=== PATIENT | male | born 1965 | race African-American/Black ===

== ENCOUNTER 2023-02-01 15:43 | Inpatient (IN) | payer OTHER ==
[2023-02-01] MEDS ORDERED: IBUPROFEN 400 MG TABLET (FP) PO PRN (18:51)
[2023-02-01] MEDS ORDERED: POLYETHYLENE GLYCOL (HEALTHYLAX) 3350 17 GM PACKET PO PRN (18:51)
[2023-02-01] MEDS ORDERED: METHOCARBAMOL 500 MG TABLET PO PRN (18:51)
[2023-02-01] MEDS ORDERED: IBUPROFEN 600 MG TABLET (FP) PO PRN (18:51)
[2023-02-01] MEDS ORDERED: NALOXONE HCL (KLOXXADO) 8 MG SPRAY NS PRN (18:51)
[2023-02-01] MEDS ORDERED: MAG HYDROX/AL HYDROX/SIMETH 30 ML UNIT-DOSE CUP PO PRN (18:51)
[2023-02-01] MEDS ORDERED: ONDANSETRON *ODT* 4 MG TABLET SL PRN (18:51)
[2023-02-01] MEDS ORDERED: MAGNESIUM HYDROX 2400MG/30ML ORAL SUSPENSION 30 ML CUP PO PRN (18:51)
[2023-02-01] MEDS ORDERED: LOPERAMIDE HCL 2 MG CAPSULE PO PRN (18:51)
[2023-02-01] MEDS ORDERED: BISMUTH SUBSALICYLATE 524 MG/30 ML PO PRN (18:51)
[2023-02-01] MEDS ORDERED: NICOTINE 10 MG CARTRIDGE (INHALER) IH PRN (18:51)
[2023-02-01] MEDS ORDERED: BENZOCAINE/MENTHOL (CHLORASEPTIC ) LOZENGE MM PRN (18:51)
[2023-02-01] MEDS ORDERED: DICYCLOMINE HCL 10 MG CAPSULE PO PRN (18:51)
[2023-02-01] MEDS ORDERED: ACETAMINOPHEN 325 MG TABLET (FP) PO PRN (18:51)
[2023-02-01] MEDS: MELATONIN 5 MG TABLETS PO SCH (22:27)
[2023-02-01] MEDS: THIAMINE HCL 100 MG TABLET (FP) PO SCH (22:27)
[2023-02-01] MEDS: ACETAMINOPHEN 325 MG TABLET (FP) PO PRN (22:28)
[2023-02-02] MEDS ORDERED: cloNIDine HCL 0.1 MG TABLET PO ONE (06:47)
[2023-02-02] MEDS: hydrOXYzine PAMOATE 25 MG CAPSULE (FP) PO PRN (07:02)
[2023-02-02 10:09] LABS: HEMATOCRIT 36.7 % (35.4-49); HEMOGLOBIN 11.8 GM/dL (11.7-16.9); MCH 30.3 pg (25.7-33.7); MCHC 32.1 g/dl (32.0-35.9); MEAN CELL VOLUME 94.4 fl (80-96); MEAN PLT VOLUME 8.7 fl (7.5-11.1); PLATELET COUNT 223 10^3/uL (134-434); RBC 3.88 M/mm3 (4.00-5.60); WHITE BLOOD COUNT 7.4 K/mm3 (4.0-10.0)
[2023-02-02] MEDS: ACETAMINOPHEN 325 MG TABLET (FP) PO PRN (10:32)
[2023-02-02] MEDS: PRENATAL VITAMINS W/ FOLIC ACID TABLET (FP) PO SCH (10:34)
[2023-02-02 10:35] LABS: CALCIUM 8.2 mg/dL (8.5-10.1)
[2023-02-02 10:36] LABS: ALBUMIN 3.2 g/dl (3.4-5.0)
[2023-02-02 10:39] LABS: CREATININE 1.4 mg/dL (0.55-1.3); TOT PROT 6.6 g/dl (6.4-8.2)
[2023-02-02 10:41] LABS: BILIRUBIN,TOTAL 0.6 mg/dL (0.2-1)
[2023-02-02] MEDS: MELATONIN 5 MG TABLETS PO SCH (22:30)
[2023-02-02] MEDS: THIAMINE HCL 100 MG TABLET (FP) PO SCH (22:30)
[2023-02-03] MEDS: PRENATAL VITAMINS W/ FOLIC ACID TABLET (FP) PO SCH (10:33)
[2023-02-03] MEDS ORDERED: amLODIPine BESYLATE 5 MG TABLET (FP) PO SCH (18:00)
[2023-02-03] MEDS: amLODIPine BESYLATE 10 MG TABLET (FP) PO SCH (18:06)
[2023-02-03] MEDS: ACETAMINOPHEN 325 MG TABLET (FP) PO PRN (18:06)
[2023-02-03] MEDS: THIAMINE HCL 100 MG TABLET (FP) PO SCH (21:56)
[2023-02-03] MEDS: CALCIUM CARBONATE 650 MG TABLET PO SCH (21:56)
[2023-02-03] MEDS: MELATONIN 5 MG TABLETS PO SCH (21:59)
[2023-02-03] MEDS: hydrOXYzine PAMOATE 25 MG CAPSULE (FP) PO PRN (22:01)
[2023-02-04] MEDS: amLODIPine BESYLATE 10 MG TABLET (FP) PO SCH (10:05)
[2023-02-04] MEDS: PRENATAL VITAMINS W/ FOLIC ACID TABLET (FP) PO SCH (10:05)
[2023-02-04] MEDS: CALCIUM CARBONATE 650 MG TABLET PO SCH (10:05)
[2023-02-04] MEDS: ACETAMINOPHEN 325 MG TABLET (FP) PO PRN (10:08)
[2023-02-04 12:15] VITALS: RESP 18
[2023-02-04 12:40] VITALS: BP 160/93; PULSE 84; TEMP 97.7
[2023-02-04 15:12] LABS: CALCIUM 9.1 mg/dL (8.5-10.1)
[2023-02-04 15:13] LABS: ALBUMIN 3.4 g/dl (3.4-5.0)
[2023-02-04 15:16] LABS: CREATININE 1.2 mg/dL (0.55-1.3)
[2023-02-04 15:17] LABS: BILIRUBIN,TOTAL 1.1 mg/dL (0.2-1)
[2023-02-04 15:18] LABS: TOT PROT 6.9 g/dl (6.4-8.2)
== END 2023-02-04 12:57 | disposition other institution (70) | DRG 774 ==
LOC: YASAS 15:43 → Y3N 19:44
PROVIDERS: ADMIT Allergy & Immunology; ATTEND Surgery
PROC: HZ2ZZZZ Detoxification Services for Substance Abuse Treatment (ICD-10-PCS; principal; 2023-02-01)
DX: F10.230 Alcohol dependence with withdrawal, uncomplicated (principal); F14.20 Cocaine dependence, uncomplicated; F31.9 Bipolar disorder, unspecified; N17.9 Acute kidney failure, unspecified; F41.9 Anxiety disorder, unspecified; E83.51 Hypocalcemia; E87.8 Other disorders of electrolyte and fluid balance, not elsewhere classified; I10 Essential (primary) hypertension; J45.909 Unspecified asthma, uncomplicated; M54.50 Low back pain, unspecified; G89.29 Other chronic pain; Z86.73 Personal history of transient ischemic attack (TIA), and cerebral infarction without residual deficits
CPT/HCPCS: 36415; 80053; 85027; 86780; C9803-CS; U0003; U0005

== ENCOUNTER 2023-02-04 13:21 | Inpatient (IN) | payer OTHER ==
[2023-02-04] MEDS ORDERED: BENZOCAINE/MENTHOL (CHLORASEPTIC ) LOZENGE MM PRN (15:58)
[2023-02-04] MEDS ORDERED: NICOTINE 10 MG CARTRIDGE (INHALER) IH PRN (15:58)
[2023-02-04] MEDS ORDERED: LOPERAMIDE HCL 2 MG CAPSULE PO PRN (15:58)
[2023-02-04] MEDS ORDERED: NALOXONE HCL 0.4 MG/ML VIAL IVPUSH PRN (15:58)
[2023-02-04] MEDS ORDERED: MAG HYDROX/AL HYDROX/SIMETH 30 ML UNIT-DOSE CUP PO PRN (15:58)
[2023-02-04] MEDS ORDERED: NALOXONE HCL (KLOXXADO) 8 MG SPRAY NS PRN (15:58)
[2023-02-04] MEDS ORDERED: BENZONATATE 200 MG CAPSULE PO PRN (15:58)
[2023-02-04] MEDS ORDERED: guaiFENesin 600 MG TABLET.ER (FP) PO PRN (15:58)
[2023-02-04] MEDS ORDERED: METHYLNALTREXONE BROMIDE (RELISTOR) 150 MG TABLET PO PRN (15:58)
[2023-02-04] MEDS ORDERED: MAGNESIUM HYDROX 2400MG/30ML ORAL SUSPENSION 30 ML CUP PO PRN (15:58)
[2023-02-04] MEDS ORDERED: POLYETHYLENE GLYCOL (HEALTHYLAX) 3350 17 GM PACKET PO PRN (15:58)
[2023-02-04] MEDS: MELATONIN 5 MG TABLETS PO SCH (21:22)
[2023-02-04] MEDS: THIAMINE HCL 100 MG TABLET (FP) PO SCH (21:22)
[2023-02-04] MEDS: ACETAMINOPHEN 325 MG TABLET (FP) PO PRN (21:23)
[2023-02-05] MEDS: amLODIPine BESYLATE 10 MG TABLET (FP) PO SCH (09:13)
[2023-02-05] MEDS: PRENATAL VITAMINS W/ FOLIC ACID TABLET (FP) PO SCH (09:13)
[2023-02-05] MEDS ORDERED: ONDANSETRON *ODT* 4 MG TABLET SL PRN (10:56)
[2023-02-05] MEDS: ACETAMINOPHEN 325 MG TABLET (FP) PO PRN (21:18)
[2023-02-05] MEDS: MELATONIN 5 MG TABLETS PO SCH (21:18)
[2023-02-05] MEDS: THIAMINE HCL 100 MG TABLET (FP) PO SCH (21:18)
[2023-02-05] MEDS: hydrOXYzine PAMOATE 25 MG CAPSULE (FP) PO PRN (21:19)
[2023-02-06] MEDS: amLODIPine BESYLATE 10 MG TABLET (FP) PO SCH (09:57)
[2023-02-06] MEDS: PRENATAL VITAMINS W/ FOLIC ACID TABLET (FP) PO SCH (09:57)
[2023-02-06] MEDS: ACETAMINOPHEN 325 MG TABLET (FP) PO PRN ×2 (09:57→21:26)
[2023-02-06] MEDS: MELATONIN 5 MG TABLETS PO SCH (21:25)
[2023-02-06] MEDS: THIAMINE HCL 100 MG TABLET (FP) PO SCH (21:25)
[2023-02-07] MEDS: ACETAMINOPHEN 325 MG TABLET (FP) PO PRN ×2 (10:29→21:18)
[2023-02-07] MEDS: amLODIPine BESYLATE 10 MG TABLET (FP) PO SCH (10:29)
[2023-02-07] MEDS: PRENATAL VITAMINS W/ FOLIC ACID TABLET (FP) PO SCH (10:29)
[2023-02-07] MEDS: THIAMINE HCL 100 MG TABLET (FP) PO SCH (21:17)
[2023-02-07] MEDS: MELATONIN 5 MG TABLETS PO SCH (21:17)
[2023-02-08] MEDS: amLODIPine BESYLATE 10 MG TABLET (FP) PO SCH (09:30)
[2023-02-08] MEDS: PRENATAL VITAMINS W/ FOLIC ACID TABLET (FP) PO SCH (09:30)
[2023-02-08] MEDS: MELATONIN 5 MG TABLETS PO SCH (21:06)
[2023-02-08] MEDS: THIAMINE HCL 100 MG TABLET (FP) PO SCH (21:06)
[2023-02-08] MEDS: ACETAMINOPHEN 325 MG TABLET (FP) PO PRN (21:06)
[2023-02-09] MEDS: amLODIPine BESYLATE 10 MG TABLET (FP) PO SCH (09:59)
[2023-02-09] MEDS: PRENATAL VITAMINS W/ FOLIC ACID TABLET (FP) PO SCH (09:59)
[2023-02-09] MEDS: MELATONIN 5 MG TABLETS PO SCH (21:18)
[2023-02-09] MEDS: THIAMINE HCL 100 MG TABLET (FP) PO SCH (21:18)
[2023-02-09] MEDS: ACETAMINOPHEN 325 MG TABLET (FP) PO PRN (21:19)
[2023-02-10] MEDS: amLODIPine BESYLATE 10 MG TABLET (FP) PO SCH (09:41)
[2023-02-10] MEDS: PRENATAL VITAMINS W/ FOLIC ACID TABLET (FP) PO SCH (09:41)
[2023-02-10] MEDS: ACETAMINOPHEN 325 MG TABLET (FP) PO PRN ×2 (09:43→21:18)
[2023-02-10] MEDS: MELATONIN 5 MG TABLETS PO SCH (21:18)
[2023-02-10] MEDS: THIAMINE HCL 100 MG TABLET (FP) PO SCH (21:18)
[2023-02-11] MEDS: IBUPROFEN 600 MG TABLET (FP) PO PRN ×2 (06:29→18:32)
[2023-02-11] MEDS: PRENATAL VITAMINS W/ FOLIC ACID TABLET (FP) PO SCH (09:36)
[2023-02-11] MEDS: amLODIPine BESYLATE 10 MG TABLET (FP) PO SCH (09:37)
[2023-02-11] MEDS: ACETAMINOPHEN 325 MG TABLET (FP) PO PRN ×2 (09:38→21:06)
[2023-02-11] MEDS: THIAMINE HCL 100 MG TABLET (FP) PO SCH (21:06)
[2023-02-11] MEDS: MELATONIN 5 MG TABLETS PO SCH (21:06)
[2023-02-12] MEDS: ACETAMINOPHEN 325 MG TABLET (FP) PO PRN (09:32)
[2023-02-12] MEDS: PRENATAL VITAMINS W/ FOLIC ACID TABLET (FP) PO SCH (09:32)
[2023-02-12] MEDS: amLODIPine BESYLATE 10 MG TABLET (FP) PO SCH (09:32)
[2023-02-12] MEDS: THIAMINE HCL 100 MG TABLET (FP) PO SCH (21:05)
[2023-02-12] MEDS: MELATONIN 5 MG TABLETS PO SCH (21:05)
[2023-02-12] MEDS: IBUPROFEN 600 MG TABLET (FP) PO PRN (21:05)
[2023-02-13] MEDS: amLODIPine BESYLATE 10 MG TABLET (FP) PO SCH (09:37)
[2023-02-13] MEDS: PRENATAL VITAMINS W/ FOLIC ACID TABLET (FP) PO SCH (09:37)
[2023-02-13] MEDS: ACETAMINOPHEN 325 MG TABLET (FP) PO PRN (09:38)
[2023-02-13] MEDS: IBUPROFEN 600 MG TABLET (FP) PO PRN (21:18)
[2023-02-13] MEDS: MELATONIN 5 MG TABLETS PO SCH (21:19)
[2023-02-13] MEDS: THIAMINE HCL 100 MG TABLET (FP) PO SCH (21:19)
[2023-02-14] MEDS: hydrOXYzine PAMOATE 25 MG CAPSULE (FP) PO PRN (07:12)
[2023-02-14] MEDS: amLODIPine BESYLATE 10 MG TABLET (FP) PO SCH (09:37)
[2023-02-14] MEDS: PRENATAL VITAMINS W/ FOLIC ACID TABLET (FP) PO SCH (09:37)
[2023-02-14] MEDS: ACETAMINOPHEN 325 MG TABLET (FP) PO PRN (09:38)
[2023-02-14] MEDS: IBUPROFEN 600 MG TABLET (FP) PO PRN (21:08)
[2023-02-14] MEDS: THIAMINE HCL 100 MG TABLET (FP) PO SCH (21:09)
[2023-02-14] MEDS: MELATONIN 5 MG TABLETS PO SCH (21:09)
[2023-02-15] MEDS: PRENATAL VITAMINS W/ FOLIC ACID TABLET (FP) PO SCH (09:33)
[2023-02-15] MEDS: ACETAMINOPHEN 325 MG TABLET (FP) PO PRN (09:34)
[2023-02-15] MEDS: amLODIPine BESYLATE 10 MG TABLET (FP) PO SCH (09:34)
[2023-02-15] MEDS: THIAMINE HCL 100 MG TABLET (FP) PO SCH (21:17)
[2023-02-15] MEDS: IBUPROFEN 600 MG TABLET (FP) PO PRN (21:17)
[2023-02-15] MEDS: MELATONIN 5 MG TABLETS PO SCH (21:17)
[2023-02-16] MEDS: amLODIPine BESYLATE 10 MG TABLET (FP) PO SCH (09:38)
[2023-02-16] MEDS: PRENATAL VITAMINS W/ FOLIC ACID TABLET (FP) PO SCH (09:38)
[2023-02-16] MEDS: THIAMINE HCL 100 MG TABLET (FP) PO SCH (21:18)
[2023-02-16] MEDS: MELATONIN 5 MG TABLETS PO SCH (21:18)
[2023-02-16] MEDS: IBUPROFEN 400 MG TABLET (FP) PO PRN (21:19)
[2023-02-17] MEDS: amLODIPine BESYLATE 10 MG TABLET (FP) PO SCH (09:43)
[2023-02-17] MEDS: PRENATAL VITAMINS W/ FOLIC ACID TABLET (FP) PO SCH (09:44)
[2023-02-17] MEDS: IBUPROFEN 600 MG TABLET (FP) PO PRN (09:44)
[2023-02-17] MEDS: THIAMINE HCL 100 MG TABLET (FP) PO SCH (21:42)
[2023-02-17] MEDS: MELATONIN 5 MG TABLETS PO SCH (21:42)
[2023-02-17] MEDS: IBUPROFEN 400 MG TABLET (FP) PO PRN (21:42)
[2023-02-18] MEDS: PRENATAL VITAMINS W/ FOLIC ACID TABLET (FP) PO SCH (09:48)
[2023-02-18] MEDS: amLODIPine BESYLATE 10 MG TABLET (FP) PO SCH (09:48)
[2023-02-18] MEDS: IBUPROFEN 600 MG TABLET (FP) PO PRN ×2 (09:50→21:04)
[2023-02-18] MEDS: THIAMINE HCL 100 MG TABLET (FP) PO SCH (21:04)
[2023-02-18] MEDS: MELATONIN 5 MG TABLETS PO SCH (21:04)
[2023-02-18 22:03] VITALS: RESP 18
[2023-02-19 06:55] VITALS: TEMP 96.9
[2023-02-19] MEDS: PRENATAL VITAMINS W/ FOLIC ACID TABLET (FP) PO SCH (09:38)
[2023-02-19] MEDS: ACETAMINOPHEN 325 MG TABLET (FP) PO PRN (09:38)
[2023-02-19] MEDS: amLODIPine BESYLATE 10 MG TABLET (FP) PO SCH (09:39)
[2023-02-19] MEDS: THIAMINE HCL 100 MG TABLET (FP) PO SCH (21:09)
[2023-02-19] MEDS: MELATONIN 5 MG TABLETS PO SCH (21:09)
[2023-02-19] MEDS: IBUPROFEN 400 MG TABLET (FP) PO PRN (21:10)
[2023-02-20 06:43] VITALS: BP 135/82; PULSE 97
[2023-02-20] MEDS: amLODIPine BESYLATE 10 MG TABLET (FP) PO SCH (09:49)
[2023-02-20] MEDS: ACETAMINOPHEN 325 MG TABLET (FP) PO PRN (09:49)
[2023-02-20] MEDS: PRENATAL VITAMINS W/ FOLIC ACID TABLET (FP) PO SCH (09:49)
== END 2023-02-20 12:20 | disposition home or self-care (01) | DRG 772 ==
LOC: YASAS 13:21 → Y5N 13:22
PROVIDERS: ADMIT Allergy & Immunology; ATTEND Psychiatry & Neurology Pain Medicine
PROC: HZ42ZZZ Group Counseling for Substance Abuse Treatment, Cognitive-Behavioral (ICD-10-PCS; principal; 2023-02-04)
DX: F10.20 Alcohol dependence, uncomplicated (principal); F14.20 Cocaine dependence, uncomplicated; F31.9 Bipolar disorder, unspecified; F41.9 Anxiety disorder, unspecified; I10 Essential (primary) hypertension; M54.50 Low back pain, unspecified; G89.29 Other chronic pain; Z86.73 Personal history of transient ischemic attack (TIA), and cerebral infarction without residual deficits; R26.89 Other abnormalities of gait and mobility; Z99.89 Dependence on other enabling machines and devices; Z59.00 Homelessness unspecified
CPT/HCPCS: 71046-TC-FY; 82962; Q0162

== ENCOUNTER 2023-05-10 20:42 | Inpatient (IN) | payer OTHER ==
[2023-05-10 23:49] VITALS: BMI 22.3
[2023-05-11] MEDS ORDERED: DICYCLOMINE HCL 10 MG CAPSULE PO PRN (01:08)
[2023-05-11] MEDS ORDERED: IBUPROFEN 400 MG TABLET (FP) PO PRN (01:08)
[2023-05-11] MEDS ORDERED: BENZOCAINE/MENTHOL (CHLORASEPTIC ) LOZENGE MM PRN (01:08)
[2023-05-11] MEDS ORDERED: NICOTINE 10 MG CARTRIDGE (INHALER) IH PRN (01:08)
[2023-05-11] MEDS ORDERED: LOPERAMIDE HCL 2 MG CAPSULE PO PRN (01:08)
[2023-05-11] MEDS ORDERED: NALOXONE HCL 0.4 MG/ML VIAL IM PRN (01:08)
[2023-05-11] MEDS ORDERED: MAG HYDROX/AL HYDROX/SIMETH 30 ML UNIT-DOSE CUP PO PRN (01:08)
[2023-05-11] MEDS ORDERED: MAGNESIUM HYDROX 2400MG/30ML ORAL SUSPENSION 30 ML CUP PO PRN (01:08)
[2023-05-11] MEDS ORDERED: NALOXONE HCL (KLOXXADO) 8 MG SPRAY NS PRN (01:08)
[2023-05-11] MEDS ORDERED: IBUPROFEN 600 MG TABLET (FP) PO PRN (01:08)
[2023-05-11] MEDS ORDERED: POLYETHYLENE GLYCOL (HEALTHYLAX) 3350 17 GM PACKET PO PRN (01:08)
[2023-05-11] MEDS ORDERED: ONDANSETRON *ODT* 4 MG TABLET SL PRN (01:08)
[2023-05-11] MEDS ORDERED: METHOCARBAMOL 500 MG TABLET PO PRN (01:08)
[2023-05-11] MEDS ORDERED: guaiFENesin 600 MG TABLET.ER (FP) PO PRN (01:08)
[2023-05-11] MEDS ORDERED: BISMUTH SUBSALICYLATE 524 MG/30 ML PO PRN (01:08)
[2023-05-11] MEDS ORDERED: BENZONATATE 200 MG CAPSULE PO PRN (01:08)
[2023-05-11] MEDS ORDERED: cloNIDine HCL 0.1 MG TABLET ONE (01:57)
[2023-05-11] MEDS ORDERED: ACETAMINOPHEN 325 MG TABLET (FP) ONE (01:57)
[2023-05-11] MEDS: ACETAMINOPHEN 325 MG TABLET (FP) PO PRN (01:59)
[2023-05-11] MEDS ORDERED: cloNIDine HCL 0.1 MG TABLET PO ONE (02:00)
[2023-05-11] MEDS: NICOTINE 14 MG/24 HOURS TOPICAL PATCH TD SCH (11:07)
[2023-05-11] MEDS: PRENATAL VITAMINS W/ FOLIC ACID TABLET (FP) PO SCH (11:07)
[2023-05-11] MEDS: amLODIPine BESYLATE 10 MG TABLET (FP) PO SCH (12:44)
[2023-05-11] MEDS: VITAMINS A AND D TOPICAL OINTMENT 60 GM TUBE TP SCH ×2 (12:44→19:14)
[2023-05-11] MEDS ORDERED: ALBUTEROL SO4 0.083% IH SOL 2.5 MG/3 ML VIAL.NEB. NEB PRN (15:08)
[2023-05-11] MEDS: LISINOPRIL 5 MG TABLET PO SCH (15:43)
[2023-05-11] MEDS: MELATONIN 5 MG TABLETS PO SCH (22:37)
[2023-05-11] MEDS: DOCUSATE SODIUM 100 MG CAPSULE (FP) PO SCH (22:37)
[2023-05-11] MEDS: THIAMINE HCL 100 MG TABLET (FP) PO SCH (22:39)
[2023-05-12] MEDS: VITAMINS A AND D TOPICAL OINTMENT 60 GM TUBE TP SCH ×4 (06:22→19:20)
[2023-05-12 10:15] LABS: POTASSIUM 4.5 mmol/L (3.5-5.1)
[2023-05-12 10:21] LABS: HEMATOCRIT 35.3 % (35.4-49); HEMOGLOBIN 11.6 GM/dL (11.7-16.9); MCH 30.9 pg (25.7-33.7); MCHC 32.8 g/dl (32.0-35.9); MEAN CELL VOLUME 94.3 fl (80-96); MEAN PLT VOLUME 9.6 fl (7.5-11.1); PLATELET COUNT 249 10^3/uL (134-434); RBC 3.74 M/mm3 (4.00-5.60); RDW 13.7 % (11.9-15.9); WHITE BLOOD COUNT 6.7 K/mm3 (4.0-10.0)
[2023-05-12 10:22] LABS: CALCIUM 8.9 mg/dL (8.5-10.1)
[2023-05-12 10:23] LABS: ALBUMIN 3.2 g/dl (3.4-5.0)
[2023-05-12 10:26] LABS: CREATININE 1.1 mg/dL (0.55-1.3)
[2023-05-12 10:27] LABS: BILIRUBIN,TOTAL 0.6 mg/dL (0.2-1); TOT PROT 6.9 g/dl (6.4-8.2)
[2023-05-12] MEDS: NICOTINE 14 MG/24 HOURS TOPICAL PATCH TD SCH (10:57)
[2023-05-12] MEDS: amLODIPine BESYLATE 10 MG TABLET (FP) PO SCH (10:57)
[2023-05-12] MEDS: LISINOPRIL 5 MG TABLET PO SCH (10:57)
[2023-05-12] MEDS: PRENATAL VITAMINS W/ FOLIC ACID TABLET (FP) PO SCH (10:57)
[2023-05-12] MEDS: ACETAMINOPHEN 325 MG TABLET (FP) PO PRN (11:00)
[2023-05-12] MEDS ORDERED: LISINOPRIL 5 MG TABLET PO SCH (13:20)
[2023-05-12] MEDS ORDERED: cloNIDine HCL 0.1 MG TABLET PO ONE (13:20)
[2023-05-12] MEDS: THIAMINE HCL 100 MG TABLET (FP) PO SCH (22:59)
[2023-05-12] MEDS: DOCUSATE SODIUM 100 MG CAPSULE (FP) PO SCH (22:59)
[2023-05-12] MEDS: MELATONIN 5 MG TABLETS PO SCH (22:59)
[2023-05-13] MEDS: VITAMINS A AND D TOPICAL OINTMENT 60 GM TUBE TP SCH ×2 (06:16→12:13)
[2023-05-13 09:02] VITALS: RESP 18
[2023-05-13] MEDS: amLODIPine BESYLATE 10 MG TABLET (FP) PO SCH (10:23)
[2023-05-13] MEDS: PRENATAL VITAMINS W/ FOLIC ACID TABLET (FP) PO SCH (10:23)
[2023-05-13] MEDS: NICOTINE 14 MG/24 HOURS TOPICAL PATCH TD SCH (10:23)
[2023-05-13] MEDS: ACETAMINOPHEN 325 MG TABLET (FP) PO PRN (10:24)
[2023-05-13 13:07] VITALS: BP 147/98; PULSE 72; TEMP 98.8
== END 2023-05-13 13:21 | disposition other institution (70) | DRG 774 ==
LOC: YASAS 20:42 → Y3N 05-11 03:16
PROVIDERS: ADMIT Allergy & Immunology; ATTEND Allergy & Immunology
PROC: HZ2ZZZZ Detoxification Services for Substance Abuse Treatment (ICD-10-PCS; principal; 2023-05-11)
DX: F10.230 Alcohol dependence with withdrawal, uncomplicated (principal); F14.20 Cocaine dependence, uncomplicated; F17.210 Nicotine dependence, cigarettes, uncomplicated; F31.9 Bipolar disorder, unspecified; F41.9 Anxiety disorder, unspecified; I10 Essential (primary) hypertension; J45.909 Unspecified asthma, uncomplicated; K59.00 Constipation, unspecified; M54.50 Low back pain, unspecified; G89.29 Other chronic pain; Z86.19 Personal history of other infectious and parasitic diseases; Z86.73 Personal history of transient ischemic attack (TIA), and cerebral infarction without residual deficits; Z99.89 Dependence on other enabling machines and devices
CPT/HCPCS: 36415; 80053; 85027; 86780; 87635

== ENCOUNTER 2023-05-13 13:35 | Inpatient (IN) | payer OTHER ==
[2023-05-13] MEDS ORDERED: NICOTINE 10 MG CARTRIDGE (INHALER) IH PRN (13:46)
[2023-05-13] MEDS ORDERED: hydrOXYzine PAMOATE 25 MG CAPSULE (FP) PO PRN (13:46)
[2023-05-13] MEDS ORDERED: BENZONATATE 200 MG CAPSULE PO PRN (13:46)
[2023-05-13] MEDS ORDERED: MAG HYDROX/AL HYDROX/SIMETH 30 ML UNIT-DOSE CUP PO PRN (13:46)
[2023-05-13] MEDS ORDERED: COLLOIDAL OATMEAL 1 BAR EACH TP PRN (13:46)
[2023-05-13] MEDS ORDERED: NALOXONE HCL (KLOXXADO) 8 MG SPRAY NS PRN (13:46)
[2023-05-13] MEDS ORDERED: BENZOCAINE/MENTHOL (CHLORASEPTIC ) LOZENGE MM PRN (13:46)
[2023-05-13] MEDS ORDERED: AMMONIUM LACTATE 12% LOTION 225 GM BOTTLE TP PRN (13:46)
[2023-05-13] MEDS ORDERED: POLYETHYLENE GLYCOL (HEALTHYLAX) 3350 17 GM PACKET PO PRN (13:46)
[2023-05-13] MEDS ORDERED: LOPERAMIDE HCL 2 MG CAPSULE PO PRN (13:46)
[2023-05-13] MEDS ORDERED: guaiFENesin 600 MG TABLET.ER (FP) PO PRN (13:46)
[2023-05-13] MEDS ORDERED: MAGNESIUM HYDROX 2400MG/30ML ORAL SUSPENSION 30 ML CUP PO PRN (13:46)
[2023-05-13] MEDS ORDERED: NALOXONE HCL 0.4 MG/ML VIAL IVPUSH PRN (13:46)
[2023-05-13] MEDS ORDERED: ALBUTEROL SO4 0.083% IH SOL 2.5 MG/3 ML VIAL.NEB. NEB PRN (15:09)
[2023-05-13] MEDS ORDERED: cloNIDine HCL 0.1 MG TABLET PO PRN (15:09)
[2023-05-13] MEDS: cloNIDine HCL 0.1 MG TABLET PO PRN ×2 (15:18→21:57)
[2023-05-13] MEDS: BACLOFEN 10 MG TABLET (FP) PO PRN (21:57)
[2023-05-13] MEDS: MELATONIN 5 MG TABLETS PO SCH (21:57)
[2023-05-13] MEDS: DOCUSATE SODIUM 100 MG CAPSULE (FP) PO SCH (21:57)
[2023-05-13] MEDS: IBUPROFEN 600 MG TABLET (FP) PO PRN (21:58)
[2023-05-13] MEDS: THIAMINE HCL 100 MG TABLET (FP) PO SCH (21:58)
[2023-05-14] MEDS: ACETAMINOPHEN 325 MG TABLET (FP) PO PRN ×2 (06:27→10:09)
[2023-05-14] MEDS: PRENATAL VITAMINS W/ FOLIC ACID TABLET (FP) PO SCH (10:09)
[2023-05-14] MEDS: cloNIDine HCL 0.1 MG TABLET PO PRN (10:09)
[2023-05-14] MEDS: amLODIPine BESYLATE 10 MG TABLET (FP) PO SCH (10:09)
[2023-05-14] MEDS: LISINOPRIL 10 MG TABLET PO SCH (10:09)
[2023-05-14] MEDS: LACTULOSE 20 GM/30 ML UDC (FOR ORAL USE ONLY) PO SCH ×2 (15:20→21:06)
[2023-05-14] MEDS: FERROUS SO4 325 MG TABLET (FP) PO SCH (15:20)
[2023-05-14] MEDS: MELATONIN 5 MG TABLETS PO SCH (21:05)
[2023-05-14] MEDS: IBUPROFEN 600 MG TABLET (FP) PO PRN (21:05)
[2023-05-14] MEDS: THIAMINE HCL 100 MG TABLET (FP) PO SCH (21:05)
[2023-05-14] MEDS: DOCUSATE SODIUM 100 MG CAPSULE (FP) PO SCH (21:06)
[2023-05-15] MEDS ORDERED: ACETAMINOPHEN 325 MG TABLET (FP) ONE (06:16)
[2023-05-15] MEDS: BACLOFEN 10 MG TABLET (FP) PO PRN ×2 (06:17→21:23)
[2023-05-15] MEDS: LACTULOSE 20 GM/30 ML UDC (FOR ORAL USE ONLY) PO SCH ×3 (06:17→21:23)
[2023-05-15] MEDS: FERROUS SO4 325 MG TABLET (FP) PO SCH (07:16)
[2023-05-15] MEDS: IBUPROFEN 600 MG TABLET (FP) PO PRN (09:44)
[2023-05-15] MEDS: PRENATAL VITAMINS W/ FOLIC ACID TABLET (FP) PO SCH (09:46)
[2023-05-15] MEDS: LISINOPRIL 10 MG TABLET PO SCH (09:46)
[2023-05-15] MEDS: amLODIPine BESYLATE 10 MG TABLET (FP) PO SCH (09:46)
[2023-05-15 11:34] LABS: INR 0.97 (0.83-1.09); PROTHROMBIN TIME (PATIENT) 11.2 SEC (9.7-13.0)
[2023-05-15] MEDS: IBUPROFEN 400 MG TABLET (FP) PO PRN (13:59)
[2023-05-15] MEDS: CHOLECALCIFEROL (VIT D3) 400 UNIT (10 MCG) TABLET PO SCH (14:21)
[2023-05-15] MEDS: THIAMINE HCL 100 MG TABLET (FP) PO SCH (21:23)
[2023-05-15] MEDS: DOCUSATE SODIUM 100 MG CAPSULE (FP) PO SCH (21:23)
[2023-05-15] MEDS: MELATONIN 5 MG TABLETS PO SCH (21:23)
[2023-05-16] MEDS: BACLOFEN 10 MG TABLET (FP) PO PRN ×2 (06:16→21:39)
[2023-05-16] MEDS: LACTULOSE 20 GM/30 ML UDC (FOR ORAL USE ONLY) PO SCH ×3 (06:16→21:39)
[2023-05-16] MEDS: FERROUS SO4 325 MG TABLET (FP) PO SCH (07:55)
[2023-05-16] MEDS: CHOLECALCIFEROL (VIT D3) 400 UNIT (10 MCG) TABLET PO SCH (10:19)
[2023-05-16] MEDS: IBUPROFEN 600 MG TABLET (FP) PO PRN (10:19)
[2023-05-16] MEDS: PRENATAL VITAMINS W/ FOLIC ACID TABLET (FP) PO SCH (10:20)
[2023-05-16] MEDS: LISINOPRIL 10 MG TABLET PO SCH (10:25)
[2023-05-16] MEDS: cloNIDine HCL 0.1 MG TABLET PO PRN (10:25)
[2023-05-16] MEDS: amLODIPine BESYLATE 10 MG TABLET (FP) PO SCH (10:26)
[2023-05-16] MEDS: DOCUSATE SODIUM 100 MG CAPSULE (FP) PO SCH (21:39)
[2023-05-16] MEDS: MELATONIN 5 MG TABLETS PO SCH (21:39)
[2023-05-16] MEDS: THIAMINE HCL 100 MG TABLET (FP) PO SCH (21:39)
[2023-05-17] MEDS: LACTULOSE 20 GM/30 ML UDC (FOR ORAL USE ONLY) PO SCH ×3 (07:00→21:16)
[2023-05-17] MEDS: FERROUS SO4 325 MG TABLET (FP) PO SCH (07:00)
[2023-05-17] MEDS: amLODIPine BESYLATE 10 MG TABLET (FP) PO SCH (09:33)
[2023-05-17] MEDS: PRENATAL VITAMINS W/ FOLIC ACID TABLET (FP) PO SCH (09:34)
[2023-05-17] MEDS: LISINOPRIL 10 MG TABLET PO SCH (09:34)
[2023-05-17] MEDS: CHOLECALCIFEROL (VIT D3) 400 UNIT (10 MCG) TABLET PO SCH (09:34)
[2023-05-17] MEDS: IBUPROFEN 600 MG TABLET (FP) PO PRN (13:14)
[2023-05-17] MEDS: MELATONIN 5 MG TABLETS PO SCH (21:16)
[2023-05-17] MEDS: DOCUSATE SODIUM 100 MG CAPSULE (FP) PO SCH (21:16)
[2023-05-17] MEDS: cloNIDine HCL 0.1 MG TABLET PO PRN (21:17)
[2023-05-17] MEDS: THIAMINE HCL 100 MG TABLET (FP) PO SCH (21:17)
[2023-05-17] MEDS: IBUPROFEN 400 MG TABLET (FP) PO PRN (21:17)
[2023-05-18] MEDS: LACTULOSE 20 GM/30 ML UDC (FOR ORAL USE ONLY) PO SCH ×3 (06:14→21:11)
[2023-05-18] MEDS: BACLOFEN 10 MG TABLET (FP) PO PRN (06:14)
[2023-05-18] MEDS: FERROUS SO4 325 MG TABLET (FP) PO SCH (07:15)
[2023-05-18] MEDS: amLODIPine BESYLATE 10 MG TABLET (FP) PO SCH (09:07)
[2023-05-18] MEDS: CHOLECALCIFEROL (VIT D3) 400 UNIT (10 MCG) TABLET PO SCH (09:07)
[2023-05-18] MEDS: LISINOPRIL 10 MG TABLET PO SCH (09:07)
[2023-05-18] MEDS: cloNIDine HCL 0.1 MG TABLET PO PRN (09:07)
[2023-05-18] MEDS: PRENATAL VITAMINS W/ FOLIC ACID TABLET (FP) PO SCH (09:07)
[2023-05-18] MEDS: DOCUSATE SODIUM 100 MG CAPSULE (FP) PO SCH (21:11)
[2023-05-18] MEDS: THIAMINE HCL 100 MG TABLET (FP) PO SCH (21:11)
[2023-05-18] MEDS: MELATONIN 5 MG TABLETS PO SCH (21:11)
[2023-05-19] MEDS: LACTULOSE 20 GM/30 ML UDC (FOR ORAL USE ONLY) PO SCH ×3 (06:43→21:10)
[2023-05-19] MEDS: BACLOFEN 10 MG TABLET (FP) PO PRN (06:43)
[2023-05-19] MEDS: FERROUS SO4 325 MG TABLET (FP) PO SCH (07:05)
[2023-05-19] MEDS: PRENATAL VITAMINS W/ FOLIC ACID TABLET (FP) PO SCH (09:06)
[2023-05-19] MEDS: amLODIPine BESYLATE 10 MG TABLET (FP) PO SCH (09:06)
[2023-05-19] MEDS: LISINOPRIL 10 MG TABLET PO SCH (09:06)
[2023-05-19] MEDS: cloNIDine HCL 0.1 MG TABLET PO PRN ×2 (09:07→21:12)
[2023-05-19] MEDS: CHOLECALCIFEROL (VIT D3) 400 UNIT (10 MCG) TABLET PO SCH (09:07)
[2023-05-19] MEDS: MELATONIN 5 MG TABLETS PO SCH (21:10)
[2023-05-19] MEDS: DOCUSATE SODIUM 100 MG CAPSULE (FP) PO SCH (21:10)
[2023-05-19] MEDS: THIAMINE HCL 100 MG TABLET (FP) PO SCH (21:10)
[2023-05-19] MEDS: IBUPROFEN 600 MG TABLET (FP) PO PRN (21:11)
[2023-05-20] MEDS: LACTULOSE 20 GM/30 ML UDC (FOR ORAL USE ONLY) PO SCH ×3 (06:14→21:35)
[2023-05-20] MEDS: FERROUS SO4 325 MG TABLET (FP) PO SCH (07:11)
[2023-05-20] MEDS: cloNIDine HCL 0.1 MG TABLET PO PRN ×2 (07:32→21:35)
[2023-05-20] MEDS: LISINOPRIL 10 MG TABLET PO SCH (10:10)
[2023-05-20] MEDS: amLODIPine BESYLATE 10 MG TABLET (FP) PO SCH (10:10)
[2023-05-20] MEDS: CHOLECALCIFEROL (VIT D3) 400 UNIT (10 MCG) TABLET PO SCH (10:10)
[2023-05-20] MEDS: PRENATAL VITAMINS W/ FOLIC ACID TABLET (FP) PO SCH (10:11)
[2023-05-20] MEDS: IBUPROFEN 400 MG TABLET (FP) PO PRN (10:12)
[2023-05-20] MEDS: DOCUSATE SODIUM 100 MG CAPSULE (FP) PO SCH (21:35)
[2023-05-20] MEDS: THIAMINE HCL 100 MG TABLET (FP) PO SCH (21:35)
[2023-05-20] MEDS: MELATONIN 5 MG TABLETS PO SCH (21:35)
[2023-05-21] MEDS: LACTULOSE 20 GM/30 ML UDC (FOR ORAL USE ONLY) PO SCH ×3 (06:41→21:28)
[2023-05-21] MEDS: IBUPROFEN 400 MG TABLET (FP) PO PRN (06:41)
[2023-05-21] MEDS: FERROUS SO4 325 MG TABLET (FP) PO SCH (07:23)
[2023-05-21] MEDS: CHOLECALCIFEROL (VIT D3) 400 UNIT (10 MCG) TABLET PO SCH (10:06)
[2023-05-21] MEDS: amLODIPine BESYLATE 10 MG TABLET (FP) PO SCH (10:06)
[2023-05-21] MEDS: PRENATAL VITAMINS W/ FOLIC ACID TABLET (FP) PO SCH (10:06)
[2023-05-21] MEDS: LISINOPRIL 10 MG TABLET PO SCH (10:06)
[2023-05-21] MEDS: cloNIDine HCL 0.1 MG TABLET PO PRN ×2 (11:56→21:28)
[2023-05-21] MEDS: THIAMINE HCL 100 MG TABLET (FP) PO SCH (21:28)
[2023-05-21] MEDS: DOCUSATE SODIUM 100 MG CAPSULE (FP) PO SCH (21:28)
[2023-05-21] MEDS: MELATONIN 5 MG TABLETS PO SCH (21:28)
[2023-05-22] MEDS: LACTULOSE 20 GM/30 ML UDC (FOR ORAL USE ONLY) PO SCH ×3 (06:47→21:11)
[2023-05-22] MEDS: IBUPROFEN 400 MG TABLET (FP) PO PRN (06:48)
[2023-05-22] MEDS: FERROUS SO4 325 MG TABLET (FP) PO SCH (07:19)
[2023-05-22] MEDS: CHOLECALCIFEROL (VIT D3) 400 UNIT (10 MCG) TABLET PO SCH (09:28)
[2023-05-22] MEDS: LISINOPRIL 10 MG TABLET PO SCH (09:28)
[2023-05-22] MEDS: amLODIPine BESYLATE 10 MG TABLET (FP) PO SCH (09:28)
[2023-05-22] MEDS: PRENATAL VITAMINS W/ FOLIC ACID TABLET (FP) PO SCH (09:29)
[2023-05-22] MEDS: IBUPROFEN 600 MG TABLET (FP) PO PRN (13:54)
[2023-05-22] MEDS: THIAMINE HCL 100 MG TABLET (FP) PO SCH (21:09)
[2023-05-22] MEDS: MELATONIN 5 MG TABLETS PO SCH (21:09)
[2023-05-22] MEDS: DOCUSATE SODIUM 100 MG CAPSULE (FP) PO SCH (21:10)
[2023-05-22] MEDS: cloNIDine HCL 0.1 MG TABLET PO PRN (21:10)
[2023-05-22] MEDS: RIFAXIMIN 550 MG TABLET PO SCH (21:11)
[2023-05-23] MEDS: LACTULOSE 20 GM/30 ML UDC (FOR ORAL USE ONLY) PO SCH ×3 (06:29→21:26)
[2023-05-23] MEDS: IBUPROFEN 400 MG TABLET (FP) PO PRN (06:29)
[2023-05-23] MEDS: FERROUS SO4 325 MG TABLET (FP) PO SCH (07:36)
[2023-05-23] MEDS: LISINOPRIL 10 MG TABLET PO SCH (09:58)
[2023-05-23] MEDS: amLODIPine BESYLATE 10 MG TABLET (FP) PO SCH (09:58)
[2023-05-23] MEDS: RIFAXIMIN 550 MG TABLET PO SCH ×2 (09:58→21:26)
[2023-05-23] MEDS: PRENATAL VITAMINS W/ FOLIC ACID TABLET (FP) PO SCH (09:58)
[2023-05-23] MEDS: IBUPROFEN 600 MG TABLET (FP) PO PRN (10:00)
[2023-05-23] MEDS: CHOLECALCIFEROL (VIT D3) 400 UNIT (10 MCG) TABLET PO SCH (10:00)
[2023-05-23] MEDS: MELATONIN 5 MG TABLETS PO SCH (21:25)
[2023-05-23] MEDS: DOCUSATE SODIUM 100 MG CAPSULE (FP) PO SCH (21:25)
[2023-05-23] MEDS: THIAMINE HCL 100 MG TABLET (FP) PO SCH (21:25)
[2023-05-23] MEDS: cloNIDine HCL 0.1 MG TABLET PO PRN (21:25)
[2023-05-24] MEDS: IBUPROFEN 400 MG TABLET (FP) PO PRN (06:51)
[2023-05-24] MEDS: LACTULOSE 20 GM/30 ML UDC (FOR ORAL USE ONLY) PO SCH ×3 (06:51→21:15)
[2023-05-24] MEDS: FERROUS SO4 325 MG TABLET (FP) PO SCH (07:17)
[2023-05-24] MEDS: amLODIPine BESYLATE 10 MG TABLET (FP) PO SCH (09:43)
[2023-05-24] MEDS: LISINOPRIL 10 MG TABLET PO SCH (09:43)
[2023-05-24] MEDS: RIFAXIMIN 550 MG TABLET PO SCH ×2 (09:44→21:14)
[2023-05-24] MEDS: PRENATAL VITAMINS W/ FOLIC ACID TABLET (FP) PO SCH (09:44)
[2023-05-24] MEDS: CHOLECALCIFEROL (VIT D3) 400 UNIT (10 MCG) TABLET PO SCH (09:44)
[2023-05-24] MEDS: IBUPROFEN 600 MG TABLET (FP) PO PRN ×2 (13:18→21:14)
[2023-05-24] MEDS: MELATONIN 5 MG TABLETS PO SCH (21:14)
[2023-05-24] MEDS: cloNIDine HCL 0.1 MG TABLET PO PRN (21:14)
[2023-05-24] MEDS: THIAMINE HCL 100 MG TABLET (FP) PO SCH (21:14)
[2023-05-24] MEDS: DOCUSATE SODIUM 100 MG CAPSULE (FP) PO SCH (21:15)
[2023-05-25] MEDS: LACTULOSE 20 GM/30 ML UDC (FOR ORAL USE ONLY) PO SCH ×3 (06:34→21:23)
[2023-05-25] MEDS: cloNIDine HCL 0.1 MG TABLET PO PRN ×2 (06:34→21:23)
[2023-05-25] MEDS: IBUPROFEN 400 MG TABLET (FP) PO PRN ×2 (06:35→21:24)
[2023-05-25] MEDS: FERROUS SO4 325 MG TABLET (FP) PO SCH (07:36)
[2023-05-25] MEDS: LISINOPRIL 10 MG TABLET PO SCH (09:48)
[2023-05-25] MEDS: RIFAXIMIN 550 MG TABLET PO SCH ×2 (09:48→21:23)
[2023-05-25] MEDS: CHOLECALCIFEROL (VIT D3) 400 UNIT (10 MCG) TABLET PO SCH (09:48)
[2023-05-25] MEDS: amLODIPine BESYLATE 10 MG TABLET (FP) PO SCH (09:48)
[2023-05-25] MEDS: PRENATAL VITAMINS W/ FOLIC ACID TABLET (FP) PO SCH (09:48)
[2023-05-25] MEDS: DOCUSATE SODIUM 100 MG CAPSULE (FP) PO SCH (21:23)
[2023-05-25] MEDS: THIAMINE HCL 100 MG TABLET (FP) PO SCH (21:40)
[2023-05-25] MEDS: MELATONIN 5 MG TABLETS PO SCH (21:40)
[2023-05-26] MEDS: LACTULOSE 20 GM/30 ML UDC (FOR ORAL USE ONLY) PO SCH ×3 (06:50→21:32)
[2023-05-26] MEDS: IBUPROFEN 400 MG TABLET (FP) PO PRN (06:50)
[2023-05-26] MEDS: FERROUS SO4 325 MG TABLET (FP) PO SCH (07:09)
[2023-05-26] MEDS: amLODIPine BESYLATE 10 MG TABLET (FP) PO SCH (09:43)
[2023-05-26] MEDS: CHOLECALCIFEROL (VIT D3) 400 UNIT (10 MCG) TABLET PO SCH (09:44)
[2023-05-26] MEDS: RIFAXIMIN 550 MG TABLET PO SCH ×2 (09:44→21:33)
[2023-05-26] MEDS: PRENATAL VITAMINS W/ FOLIC ACID TABLET (FP) PO SCH (09:44)
[2023-05-26] MEDS: LISINOPRIL 10 MG TABLET PO SCH (09:44)
[2023-05-26] MEDS: cloNIDine HCL 0.1 MG TABLET PO PRN ×2 (13:40→21:33)
[2023-05-26] MEDS: MELATONIN 5 MG TABLETS PO SCH (21:33)
[2023-05-26] MEDS: DOCUSATE SODIUM 100 MG CAPSULE (FP) PO SCH (21:33)
[2023-05-26] MEDS: THIAMINE HCL 100 MG TABLET (FP) PO SCH (21:33)
[2023-05-27] MEDS: LACTULOSE 20 GM/30 ML UDC (FOR ORAL USE ONLY) PO SCH ×3 (06:23→21:34)
[2023-05-27] MEDS: IBUPROFEN 400 MG TABLET (FP) PO PRN (06:23)
[2023-05-27] MEDS: FERROUS SO4 325 MG TABLET (FP) PO SCH (07:09)
[2023-05-27] MEDS: amLODIPine BESYLATE 10 MG TABLET (FP) PO SCH (09:05)
[2023-05-27] MEDS: RIFAXIMIN 550 MG TABLET PO SCH ×2 (09:05→21:33)
[2023-05-27] MEDS: LISINOPRIL 10 MG TABLET PO SCH (09:05)
[2023-05-27] MEDS: PRENATAL VITAMINS W/ FOLIC ACID TABLET (FP) PO SCH (09:05)
[2023-05-27] MEDS: CHOLECALCIFEROL (VIT D3) 400 UNIT (10 MCG) TABLET PO SCH (09:06)
[2023-05-27] MEDS: cloNIDine HCL 0.1 MG TABLET PO PRN ×2 (09:06→21:34)
[2023-05-27] MEDS ORDERED: cloNIDine HCL 0.1 MG TABLET PO ONE (13:00)
[2023-05-27] MEDS: THIAMINE HCL 100 MG TABLET (FP) PO SCH (21:33)
[2023-05-27] MEDS: MELATONIN 5 MG TABLETS PO SCH (21:33)
[2023-05-27] MEDS: DOCUSATE SODIUM 100 MG CAPSULE (FP) PO SCH (21:34)
[2023-05-28] MEDS: LACTULOSE 20 GM/30 ML UDC (FOR ORAL USE ONLY) PO SCH ×3 (06:26→21:12)
[2023-05-28] MEDS: IBUPROFEN 400 MG TABLET (FP) PO PRN ×2 (06:27→13:32)
[2023-05-28] MEDS: FERROUS SO4 325 MG TABLET (FP) PO SCH (07:06)
[2023-05-28] MEDS: LISINOPRIL 10 MG TABLET PO SCH (09:39)
[2023-05-28] MEDS: amLODIPine BESYLATE 10 MG TABLET (FP) PO SCH (09:40)
[2023-05-28] MEDS: PRENATAL VITAMINS W/ FOLIC ACID TABLET (FP) PO SCH (09:40)
[2023-05-28] MEDS: RIFAXIMIN 550 MG TABLET PO SCH ×2 (09:40→21:12)
[2023-05-28] MEDS: CHOLECALCIFEROL (VIT D3) 400 UNIT (10 MCG) TABLET PO SCH (09:40)
[2023-05-28] MEDS: DOCUSATE SODIUM 100 MG CAPSULE (FP) PO SCH (21:12)
[2023-05-28] MEDS: THIAMINE HCL 100 MG TABLET (FP) PO SCH (21:12)
[2023-05-28] MEDS: IBUPROFEN 600 MG TABLET (FP) PO PRN (21:12)
[2023-05-28] MEDS: cloNIDine HCL 0.1 MG TABLET PO PRN (21:12)
[2023-05-28] MEDS: MELATONIN 5 MG TABLETS PO SCH (21:46)
[2023-05-29] MEDS: IBUPROFEN 400 MG TABLET (FP) PO PRN (06:22)
[2023-05-29] MEDS: LACTULOSE 20 GM/30 ML UDC (FOR ORAL USE ONLY) PO SCH (06:22)
[2023-05-29 06:32] VITALS: PULSE 80; RESP 16; TEMP 97.5
[2023-05-29] MEDS: FERROUS SO4 325 MG TABLET (FP) PO SCH (07:14)
[2023-05-29 08:45] VITALS: BP 159/65
[2023-05-29] MEDS: PRENATAL VITAMINS W/ FOLIC ACID TABLET (FP) PO SCH (09:06)
[2023-05-29] MEDS: amLODIPine BESYLATE 10 MG TABLET (FP) PO SCH (09:06)
[2023-05-29] MEDS: CHOLECALCIFEROL (VIT D3) 400 UNIT (10 MCG) TABLET PO SCH (09:07)
[2023-05-29] MEDS: cloNIDine HCL 0.1 MG TABLET PO PRN (09:07)
[2023-05-29] MEDS: LISINOPRIL 10 MG TABLET PO SCH (09:07)
[2023-05-29] MEDS: RIFAXIMIN 550 MG TABLET PO SCH (09:07)
== END 2023-05-29 09:27 | disposition home or self-care (01) | DRG 772 ==
LOC: YASAS 13:35 → Y3E 13:38
PROVIDERS: ADMIT Allergy & Immunology; ATTEND Psychiatry & Neurology Pain Medicine
PROC: HZ42ZZZ Group Counseling for Substance Abuse Treatment, Cognitive-Behavioral (ICD-10-PCS; principal; 2023-05-13)
DX: F10.20 Alcohol dependence, uncomplicated (principal); F14.20 Cocaine dependence, uncomplicated; F17.210 Nicotine dependence, cigarettes, uncomplicated; F31.9 Bipolar disorder, unspecified; F41.9 Anxiety disorder, unspecified; E72.20 Disorder of urea cycle metabolism, unspecified; E55.9 Vitamin D deficiency, unspecified; I10 Essential (primary) hypertension; J45.909 Unspecified asthma, uncomplicated; Z86.73 Personal history of transient ischemic attack (TIA), and cerebral infarction without residual deficits; R26.1 Paralytic gait; Z99.89 Dependence on other enabling machines and devices
CPT/HCPCS: 36415; 82140; 82306; 83735; 85610; 86803; J0475

== ENCOUNTER 2023-07-13 13:23 | Inpatient (IN) | payer OTHER ==
[2023-07-13 14:03] VITALS: BMI 19.8
[2023-07-13] MEDS ORDERED: MAG HYDROX/AL HYDROX/SIMETH 30 ML UNIT-DOSE CUP PO PRN (15:03)
[2023-07-13] MEDS ORDERED: ACETAMINOPHEN 325 MG TABLET (FP) PO PRN (15:03)
[2023-07-13] MEDS ORDERED: POLYETHYLENE GLYCOL (HEALTHYLAX) 3350 17 GM PACKET PO PRN (15:03)
[2023-07-13] MEDS ORDERED: ONDANSETRON *ODT* 4 MG TABLET SL PRN (15:03)
[2023-07-13] MEDS ORDERED: NICOTINE POLACRILEX 2 MG GUM BUC PRN (15:03)
[2023-07-13] MEDS ORDERED: guaiFENesin 600 MG TABLET.ER (FP) PO PRN (15:03)
[2023-07-13] MEDS ORDERED: LOPERAMIDE HCL 2 MG CAPSULE PO PRN (15:03)
[2023-07-13] MEDS ORDERED: BENZOCAINE/MENTHOL (CHLORASEPTIC ) LOZENGE MM PRN (15:03)
[2023-07-13] MEDS ORDERED: BISMUTH SUBSALICYLATE 524 MG/30 ML PO PRN (15:03)
[2023-07-13] MEDS ORDERED: MAGNESIUM HYDROX 2400MG/30ML ORAL SUSPENSION 30 ML CUP PO PRN (15:03)
[2023-07-13] MEDS ORDERED: IBUPROFEN 400 MG TABLET (FP) PO PRN (15:03)
[2023-07-13] MEDS ORDERED: DICYCLOMINE HCL 10 MG CAPSULE PO PRN (15:03)
[2023-07-13] MEDS ORDERED: BENZONATATE 200 MG CAPSULE PO PRN (15:03)
[2023-07-13] MEDS ORDERED: NALOXONE HCL (KLOXXADO) 8 MG SPRAY NS PRN (15:03)
[2023-07-13] MEDS ORDERED: NALOXONE HCL 0.4 MG/ML VIAL IM PRN (15:03)
[2023-07-13] MEDS: IBUPROFEN 600 MG TABLET (FP) PO PRN ×2 (15:28→22:55)
[2023-07-13] MEDS ORDERED: IBUPROFEN 600 MG TABLET (FP) PO ONE (15:31)
[2023-07-13] MEDS: amLODIPine BESYLATE 10 MG TABLET (FP) PO SCH (18:02)
[2023-07-13] MEDS: LIDOCAINE VISCOUS 2% ORAL/TOP 15 ML UNIT-DOSE CUP MM PRN (18:51)
[2023-07-13] MEDS ORDERED: LISINOPRIL 20 MG TABLET PO ONE (21:18)
[2023-07-13] MEDS: THIAMINE HCL 100 MG TABLET (FP) PO SCH (22:55)
[2023-07-13] MEDS: MELATONIN 5 MG TABLETS PO SCH (22:55)
[2023-07-13] MEDS: METHOCARBAMOL 500 MG TABLET PO PRN (22:55)
[2023-07-13] MEDS: hydrOXYzine PAMOATE 25 MG CAPSULE (FP) PO PRN (22:55)
[2023-07-13] MEDS: DOCUSATE SODIUM 100 MG CAPSULE (FP) PO SCH (22:57)
[2023-07-14] MEDS ORDERED: ALBUTEROL SO4 0.083% IH SOL 2.5 MG/3 ML VIAL.NEB. NEB PRN (10:04)
[2023-07-14] MEDS ORDERED: ALBUTEROL SO4 HFA INHALER IH PRN (10:05)
[2023-07-14] MEDS: PRENATAL VITAMINS W/ FOLIC ACID TABLET (FP) PO SCH (10:43)
[2023-07-14] MEDS: amLODIPine BESYLATE 10 MG TABLET (FP) PO SCH (10:43)
[2023-07-14] MEDS: LISINOPRIL 10 MG TABLET PO SCH (10:43)
[2023-07-14] MEDS: IBUPROFEN 600 MG TABLET (FP) PO PRN ×2 (10:46→18:44)
[2023-07-14] MEDS: LIDOCAINE VISCOUS 2% ORAL/TOP 15 ML UNIT-DOSE CUP MM PRN (10:47)
[2023-07-14 16:01] LABS: HEMATOCRIT 38.6 % (35.4-49); MCH 31.5 pg (25.7-33.7); MCHC 33.7 g/dl (32.0-35.9); MEAN CELL VOLUME 93.5 fl (80-96); MEAN PLT VOLUME 8.2 fl (7.5-11.1); PLATELET COUNT 232 10^3/uL (134-434); RBC 4.13 M/mm3 (4.00-5.60); RDW 15.3 % (11.9-15.9)
[2023-07-14 16:07] LABS: POTASSIUM 4.4 mmol/L (3.5-5.1)
[2023-07-14 16:11] LABS: CALCIUM 8.8 mg/dL (8.5-10.1)
[2023-07-14] MEDS ORDERED: PNEUMOC 20-VAL CONJ-DIP CRM/PF 0.5 ML SYRINGE IM ONE (16:11)
[2023-07-14 16:14] LABS: CREATININE 1.3 mg/dL (0.55-1.3)
[2023-07-14 16:16] LABS: BILIRUBIN,TOTAL 0.9 mg/dL (0.2-1); TOT PROT 7.8 g/dl (6.4-8.2)
[2023-07-14] MEDS: THIAMINE HCL 100 MG TABLET (FP) PO SCH (22:55)
[2023-07-14] MEDS: DOCUSATE SODIUM 100 MG CAPSULE (FP) PO SCH (22:55)
[2023-07-14] MEDS: MELATONIN 5 MG TABLETS PO SCH (22:55)
[2023-07-15] MEDS: hydrOXYzine PAMOATE 25 MG CAPSULE (FP) PO PRN (00:16)
[2023-07-15] MEDS: METHOCARBAMOL 500 MG TABLET PO PRN (00:16)
[2023-07-15] MEDS: LIDOCAINE VISCOUS 2% ORAL/TOP 15 ML UNIT-DOSE CUP MM PRN (00:18)
[2023-07-15] MEDS: LISINOPRIL 10 MG TABLET PO SCH (09:45)
[2023-07-15] MEDS: PRENATAL VITAMINS W/ FOLIC ACID TABLET (FP) PO SCH (09:45)
[2023-07-15] MEDS: amLODIPine BESYLATE 10 MG TABLET (FP) PO SCH (09:45)
[2023-07-15] MEDS: LACTULOSE 20 GM/30 ML UDC (FOR ORAL USE ONLY) PO SCH ×2 (11:41→14:11)
[2023-07-15 12:50] VITALS: BP 159/89; PULSE 94; RESP 18; TEMP 97.6
[2023-07-15] MEDS: IBUPROFEN 600 MG TABLET (FP) PO PRN (14:10)
== END 2023-07-15 14:45 | disposition home or self-care (01) | DRG 774 ==
LOC: YASAS 13:23 → Y6N 15:20
PROVIDERS: ADMIT Allergy & Immunology; ATTEND Allergy & Immunology
PROC: HZ2ZZZZ Detoxification Services for Substance Abuse Treatment (ICD-10-PCS; principal; 2023-07-13)
DX: F10.20 Alcohol dependence, uncomplicated (principal); F14.20 Cocaine dependence, uncomplicated; F17.210 Nicotine dependence, cigarettes, uncomplicated; F19.282 Other psychoactive substance dependence with psychoactive substance-induced sleep disorder; F19.24 Other psychoactive substance dependence with psychoactive substance-induced mood disorder; J45.20 Mild intermittent asthma, uncomplicated; K59.01 Slow transit constipation; I69.851 Hemiplegia and hemiparesis following other cerebrovascular disease affecting right dominant side; Z99.89 Dependence on other enabling machines and devices
CPT/HCPCS: 36415; 80053; 82140; 85027; 87635

== ENCOUNTER 2024-01-31 16:45 | Inpatient (IN) | payer OTHER ==
[2024-01-31 17:24] VITALS: BMI 20.5
[2024-01-31] MEDS ORDERED: BENZOCAINE/MENTHOL (CHLORASEPTIC ) LOZENGE MM PRN (19:57)
[2024-01-31] MEDS ORDERED: MAG HYDROX/AL HYDROX/SIMETH 30 ML UNIT-DOSE CUP PO PRN (19:57)
[2024-01-31] MEDS ORDERED: P-EPHED 60MG/TRIPROLIDI 2.5MG TABLET PO PRN (19:57)
[2024-01-31] MEDS ORDERED: NICOTINE POLACRILEX 2 MG LOZENGE BC PRN (19:57)
[2024-01-31] MEDS ORDERED: POLYETHYLENE GLYCOL (HEALTHYLAX) 3350 17 GM PACKET PO PRN (19:57)
[2024-01-31] MEDS ORDERED: LOPERAMIDE HCL 2 MG CAPSULE PO PRN (19:57)
[2024-01-31] MEDS ORDERED: guaiFENesin 600 MG TABLET.ER (FP) PO PRN (19:57)
[2024-01-31] MEDS ORDERED: BENZONATATE 200 MG CAPSULE PO PRN (19:57)
[2024-01-31] MEDS ORDERED: ACETAMINOPHEN 325 MG TABLET (FP) ONE (20:03)
[2024-01-31] MEDS ORDERED: IBUPROFEN 600 MG TABLET (FP) PO ONE (20:20)
[2024-01-31] MEDS: ACETAMINOPHEN 325 MG TABLET (FP) PO ONE (20:20)
[2024-01-31] MEDS: IBUPROFEN 600 MG TABLET (FP) PO PRN (20:21)
[2024-01-31] MEDS ORDERED: LISINOPRIL 10 MG TABLET ONE (20:34)
[2024-01-31] MEDS: LISINOPRIL 10 MG TABLET PO SCH (20:35)
[2024-01-31] MEDS: LIDOCAINE PATCH REMOVAL MC SCH (21:42)
[2024-01-31] MEDS: DOCUSATE SODIUM 100 MG CAPSULE (FP) PO SCH (21:53)
[2024-01-31] MEDS: AMOXICILLIN 500 MG CAPSULE (FP) PO SCH (21:53)
[2024-01-31] MEDS: MELATONIN 5 MG TABLETS PO SCH (21:53)
[2024-01-31] MEDS: THIAMINE HCL 100 MG TABLET (FP) PO SCH (21:53)
[2024-01-31] MEDS: LISINOPRIL 10 MG TABLET PO ONE (21:57)
[2024-01-31] MEDS: ATORVASTATIN CA 40 MG TABLET (FP) PO SCH (22:14)
[2024-02-01] MEDS: hydrOXYzine PAMOATE 25 MG CAPSULE (FP) PO PRN (06:15)
[2024-02-01] MEDS: cloNIDine HCL 0.1 MG TABLET PO ONE (08:20)
[2024-02-01] MEDS: FOLIC ACID 1 MG TABLET (FP) PO SCH (10:30)
[2024-02-01] MEDS: LIDOCAINE 5% TOPICAL PATCH TP SCH (10:30)
[2024-02-01] MEDS: PRENATAL VITAMINS W/ FOLIC ACID TABLET (FP) PO SCH (10:30)
[2024-02-01] MEDS: ASPIRIN COATED 81 MG TABLET.EC PO SCH (10:30)
[2024-02-01] MEDS: CHOLECALCIFEROL (VIT D3) 400 UNIT (10 MCG) TABLET PO SCH (10:34)
[2024-02-01] MEDS: NIFEdipine E.R. 90 MG TABLET PO SCH (10:34)
[2024-02-01 13:12] LABS: HEMATOCRIT 30.4 % (35.4-49); MCHC 32.8 g/dl (32.0-35.9); MEAN CELL VOLUME 91.5 fl (80-96); MEAN PLT VOLUME 8.2 fl (7.5-11.1); PLATELET COUNT 216 10^3/uL (134-434); RBC 3.33 M/mm3 (4.00-5.60); RDW 17.1 % (11.9-15.9); WHITE BLOOD COUNT 5.5 K/mm3 (4.0-10.0)
[2024-02-01 13:28] LABS: POTASSIUM 3.8 mmol/L (3.5-5.1)
[2024-02-01 13:36] LABS: ALBUMIN 2.8 g/dl (3.4-5.0); BLOOD UREA NITROGEN 19.5 mg/dL (7-18); CALCIUM 8.3 mg/dL (8.5-10.1)
[2024-02-01 13:41] LABS: BILIRUBIN,TOTAL 0.4 mg/dL (0.2-1); TOT PROT 6.5 g/dl (6.4-8.2)
[2024-02-01 14:01] LABS: SYPHILIS W/ RPR CONF NON-REACTIVE (NONREACTIVE)
[2024-02-01] MEDS: ACETAMINOPHEN 325 MG TABLET (FP) PO PRN (21:18)
[2024-02-02] MEDS: BENZOCAINE 20 % GEL TUBE MM PRN (18:23)
[2024-02-03] MEDS: IBUPROFEN 400 MG TABLET (FP) PO PRN (04:29)
[2024-02-03] MEDS: LISINOPRIL 5 MG TABLET PO SCH (15:15)
[2024-02-03] MEDS: cloNIDine HCL 0.1 MG TABLET PO PRN (21:21)
[2024-02-03] MEDS: BACLOFEN 10 MG TABLET (FP) PO SCH (21:23)
[2024-02-04] MEDS: FERROUS SO4 325 MG TABLET (FP) PO SCH (09:31)
[2024-02-05] MEDS: MAGNESIUM HYDROX 2400MG/30ML ORAL SUSPENSION 30 ML CUP PO PRN (06:39)
[2024-02-05 11:58] LABS: URINE APPEARANCE CLEAR; URINE BILIRUBIN NEGATIVE (NEGATIVE); URINE COLOR YELLOW; URINE GLUCOSE (UA) NEGATIVE (NEGATIVE); URINE KETONE NEGATIVE (NEGATIVE); URINE LEUK ESTERASE NEGATIVE (NEGATIVE); URINE NITRITE NEGATIVE (NEGATIVE); URINE PROTEIN NEGATIVE (NEGATIVE); URINE UROBILINOGEN 0.2 mg/dL (0.2-1.0)
[2024-02-05] MEDS: ALBUTEROL SO4 HFA INHALER IH PRN (21:42)
[2024-02-06] MEDS ORDERED: LIDOCAINE 5% TOPICAL PATCH TP PRN (15:46)
[2024-02-06] MEDS: LACTULOSE 20 GM/30 ML UDC (FOR ORAL USE ONLY) PO SCH (21:28)
[2024-02-10] MEDS: LISINOPRIL 10 MG TABLET PO SCH (09:51)
[2024-02-12] MEDS: NIFEdipine E.R. 90 MG TABLET PO SCH (07:00)
[2024-02-12] MEDS: RIFAXIMIN 550 MG TABLET PO SCH (10:08)
[2024-02-14] MEDS: LISINOPRIL 20 MG TABLET PO SCH (09:52)
[2024-02-25] MEDS: LISINOPRIL 20 MG TABLET PO SCH (15:16)
[2024-02-28 07:23] VITALS: TEMP 97.2
[2024-02-28 09:26] VITALS: BP 158/98; PULSE 67; RESP 17
== END 2024-02-28 09:31 | disposition home or self-care (01) | DRG 772 ==
LOC: YASAS 16:45 → Y3NR 21:21 → Y3E 02-03 11:44
PROVIDERS: ADMIT Allergy & Immunology; ATTEND Psychiatry & Neurology Pain Medicine
PROC: HZ42ZZZ Group Counseling for Substance Abuse Treatment, Cognitive-Behavioral (ICD-10-PCS; principal; 2024-01-31)
DX: F10.20 Alcohol dependence, uncomplicated (principal); F14.20 Cocaine dependence, uncomplicated; F17.210 Nicotine dependence, cigarettes, uncomplicated; F31.9 Bipolar disorder, unspecified; F19.24 Other psychoactive substance dependence with psychoactive substance-induced mood disorder; E72.20 Disorder of urea cycle metabolism, unspecified; I10 Essential (primary) hypertension; J45.909 Unspecified asthma, uncomplicated; M54.50 Low back pain, unspecified; G89.29 Other chronic pain; Z86.73 Personal history of transient ischemic attack (TIA), and cerebral infarction without residual deficits; Z99.89 Dependence on other enabling machines and devices
CPT/HCPCS: 0241U-QW; 36415; 71045-TC-FY; 80053; 80305; 81003; 82140; 82652; 83735; 85027; 86780; 86803; 87811; 93005; 93010; J0475